=== PATIENT | female | born 1980 | race American Indian/Alaskan Native ===

== ENCOUNTER 2020-11-16 07:30 | Day surgery (SDC) | payer BC ==
[2020-11-14 12:25] LABS: Hematocrit 37.4 % (30.3-42.9); Hemoglobin 12.9 gm/dl (10.1-14.3); Mean Corpuscular HGB Conc 35 % (30-34); Mean Corpuscular Volume 91 fl (79-97); Platelet Count 378 K/mm3 (140-440); Red Blood Count 4.13 M/mm3 (3.65-5.03); Red Cell Distribution Width 13.1 % (13.2-15.2)
--- NOTE | 2020-11-16 07:11 | Short Stay Summary ---
Short Stay Documentation Date of service: 11/16/20 Narrative H&P: 40-year-old -1-0-3 with a history of cervical dysplasia. The patient underwent a colposcopy with findings of SANCHEZ-3 at approximately 5:00 on the ectocervix. - History Principal diagnosis: Cervical dysplasia Past Medical History: No medical history Past Surgical History: Other (Tubal ligation) Social history: single - Allergies and Medications Current Medications: Allergies No Known Allergies Allergy (Unverified 11/10/20 15:57) Home Medications Medication Instructions Recorded Confirmed Last Taken Type Norgestimate-Ethinyl Estradiol 1 each PO DAILY 11/10/20 11/10/20 Unknown History [Sprintec 28 Day Tablet] Active Medications Lactated Ringer's (Lactated Ringers) 1,000 mls @ 100 mls/hr IV DIRECT JERE Stop: 11/16/20 23:59 Midazolam HCl (Midazolam 2 Mg/2 Ml Inj) 2 mg IV PREOP NR Stop: 11/16/20 23:01 - Physical exam General appearance: no acute distress Integumentary: no rash HEENT: Atraumatic Lungs: Clear to auscultation Breasts: deferred Heart: Regular rate Gastrointestinal: normal Female Genitourinary: deferred Rectal Exam: deferred Extremities: no ischemia - Brief post op/procedure progress note Date of procedure: 11/16/20 Pre-op diagnosis: Cervical dysplasia Post-op diagnosis: same Procedure: Loop electrocautery excision procedure Endocervical curettage Anesthesia: MAC Surgeon: NATALI MCKEON Estimated blood loss: 50-100ml Pathology: list (Ectocervix and indicated cervical curettings) Specimen disposition: to lab Condition: stable - Hospital course Hospital course: The patient was admitted the day of surgery underwent a LEEP procedure. Please see operative note for details of surgery. Her postoperative course was uneventful. - Disposition Condition at discharge: Good Disposition: [id number] TO HOME OR SELFCARE - Discharge Diagnoses (1) Cervical dysplasia Status: Acute Short Stay Discharge Plan Activity: other (Pelvic rest for 4 weeks) Diet: regular Additional Instructions: Schedule follow-up with Dr. Mckeon in 4 weeks Prescriptions: Ibuprofen [Motrin] 800 mg PO Q8HR PRN #30 tablet PRN Reason: Pain , Severe (7-10) HYDROcodone/APAP 5-325 [[place] 5/325] 1 each PO Q6HR PRN #15 tablet PRN Reason: Pain
[~2020-11-16 07:30] MED LIST: ACETIC ACID 3% SOLN 60 ML TP ONE; FERRIC SUBSULFATE TOPICAL SOLN 8 ML TP ONE; LACTATED RINGERS 1,000 ML IV SCH; MIDAZOLAM 2 MG/2 ML INJ IV NR; POTASSIUM IODIDE/IODINE (LUGOLS) 30 ML TP ONE
[2020-11-16] MEDS ORDERED: LIDOCAINE 2%/EPINEPHRINE 1:200,000 VIAL (20 ML) INFILTRATI ONE (07:35)
--- NOTE | 2020-11-16 07:45 | Anesthesia Day of Surgery ---
Anesthesia Day of Surgery - Day of Surgery Patient Examined: Yes Patient H&P Reviewed: Yes Patient is NPO: Yes
--- NOTE | 2020-11-16 07:45 | Anesthesia Consultation ---
Anesthesia Consult and Med Hx Date of service: 11/16/20 - Airway Anesthetic Teeth Evaluation: Good ROM Head & Neck: Adequate Mental/Hyoid Distance: Adequate Mallampati Class: Class II Intubation Access Assessment: Probably Good - Pre-Operative Health Status ASA Pre-Surgery Classification: ASA2 Proposed Anesthetic Plan: General - Pulmonary Hx Asthma: Yes (last albuterol 6mos ago) Hx Respiratory Symptoms: No - Cardiovascular System Hx Hypertension: No - Central Nervous System CVA: No - Endocrine Hx Renal Disease: No Hx Liver Disease: No Hx Insulin Dependent Diabetes: No Hx Non-Insulin Dependent Diabetes: No Hx Thyroid Disease: No - Other Systems Hx Obesity: No
[2020-11-16] MEDS ORDERED: ONDANSETRON 4 MG/2 ML INJ IV PRN (08:00)
[2020-11-16] MEDS ORDERED: KETOROLAC 30 MG/1 ML INJ IV PRN (08:00)
[2020-11-16] MEDS ORDERED: HYDROcodone/ACETAMINOPHEN 5-325 MG TAB PO PRN ×2 (08:00→11:04)
[2020-11-16] MEDS ORDERED: ceFAZolin/Water 2 GM/20 ML 2 GM/20 ML SYRINGE IV NR (08:00)
[2020-11-16] MEDS ORDERED: dexAMETHasone 20 MG/5 ML VIAL ONE (10:01)
[2020-11-16] MEDS ORDERED: ONDANSETRON 4 MG/2 ML INJ ONE (10:01)
[2020-11-16] MEDS ORDERED: PHENYLEPHRINE/NS 1,000 MCG/10 ML SYRINGE (OR USE) IV ONE (10:01)
[2020-11-16] MEDS ORDERED: GLYCOPYRROLATE 0.4 MG/2 ML INJ ONE (10:01)
[2020-11-16] MEDS ORDERED: LIDOCAINE MPF (2%) 20 MG/1 ML VIAL 5 ML ONE (10:01)
[2020-11-16] MEDS ORDERED: fentaNYL 100 MCG/2 ML INJ ONE (10:02)
[2020-11-16] MEDS ORDERED: propofoL 200 MG/20 ML VIAL IV ONE (10:02)
[2020-11-16] MEDS ORDERED: POTASSIUM IODIDE/IODINE (LUGOLS) 30 ML TP ONE (10:37)
[2020-11-16] MEDS ORDERED: FERRIC SUBSULFATE TOPICAL SOLN 8 ML TP ONE (10:37)
[2020-11-16] MEDS ORDERED: SODIUM CHLORIDE 0.9% IRR 1,500 ML BOTTLE IR ONE (10:37)
--- NOTE | 2020-11-16 10:47 | Operative Report ---
Operative Report Operative Report: Date of procedure: November 16, 2020 Pre-operative diagnosis: Severe cervical dysplasia Post-operative diagnosis: Same as above Procedure name(s): Loop electrocautery excision procedure; endocervical curettage Surgeon: Aurora Sahni M.D. Estimated blood loss: Less than 50 mL Anesthesia: MAC Findings Multiparous cervix Indication: 40-year-old -1-0-3 with a history of severe cervical dysplasia with findings of SANCHEZ-3 on cervical biopsy. Procedure The patient was taken to the operating room and given MAC anesthesia. Patient was prepped and draped in normal sterile fashion. Timeout was performed that confirmed the patient's identity and the surgical procedure. The patient was placed in high lithotomy position. A coated bivalve speculum was placed in the patient's vagina. Lugol's solution was placed on the cervix. A 20 x 15 mm loop was used to excise the ectocervix. An endocervical curettage was performed. The cervical bed was cauterized with the Bovie cautery. Hemostasis was assured. Monsel solution was placed on the cervix. The vaginal instruments were then removed atraumatically. The patient was then successfully extubated and taken to the recovery room in stable condition. All sponge laps and needle counts were correct x2.
[2020-11-16 11:31] VITALS: BP 122/83
--- NOTE | 2020-11-16 13:06 | Post Anesthesia Evaluation ---
- Post Anesthesia Evaluation Patient Participated: Yes Airway Patent: Yes Stable Respiratory Function: Yes Nausea/Vomiting: No Temp > 96.8F: Yes Pain Manageable: Yes Adequeate Hydration: Yes Anesthesia Complications: No
== END 2020-11-16 12:00 | disposition home or self-care (01) ==
LOC: OR 07:30
PROVIDERS: ATTEND Obstetrics & Gynecology
DX: D06.0 Carcinoma in situ of endocervix (principal); Z20.828 Contact with and (suspected) exposure to other viral communicable diseases; G43.909 Migraine, unspecified, not intractable, without status migrainosus; J45.909 Unspecified asthma, uncomplicated; K21.9 Gastro-esophageal reflux disease without esophagitis; Z72.89 Other problems related to lifestyle; Z79.899 Other long term (current) drug therapy; Z98.890 Other specified postprocedural states; Z86.2 Personal history of diseases of the blood and blood-forming organs and certain disorders involving the immune mechanism
CPT/HCPCS: 36415; 57522; 84703; 85027; 88305; 88307; J0690; J1100; J1885; J2250; J2370; J2405; J2704; J3010; J7120; U0003